=== PATIENT | male | born 1975 | race Caucasian/White ===

== ENCOUNTER 2024-08-14 00:30 | Emergency (ER) | payer MEDICAID ==
[~2024-08-14] VITALS: Ht 165.1 cm; Wt 91.0 kg
[2024-08-14 00:43] VITALS: O2SAT 100
[2024-08-14] MEDS ORDERED: DOXY100T28 MT (01:39)
[2024-08-14] MEDS ORDERED: NAPR-681 PO (01:39)
[2024-08-14] MEDS ORDERED: FAMO20TA8 MT (01:39)
[2024-08-14 01:50] VITALS: BP 155/89; PULSE 75; RESP 20; TEMP 36.89184; O2SAT 100
== END 2024-08-14 01:50 | disposition home or self-care (01) ==
LOC: ER 00:41
DX: S00.06XA Insect bite (nonvenomous) of scalp, initial encounter (principal); L03.811 Cellulitis of head [any part, except face]; I10 Essential (primary) hypertension; W57.XXXA Bitten or stung by nonvenomous insect and other nonvenomous arthropods, initial encounter; Y93.89 Activity, other specified; Y92.89 Other specified places as the place of occurrence of the external cause; Y99.8 Other external cause status
CPT/HCPCS: 99283

== ENCOUNTER 2024-09-06 06:13 | Emergency (ER) | payer OTHER ==
[~2024-09-06] VITALS: Ht 167.6 cm; Wt 86.0 kg
[~2024-09-06 06:13] MED LIST: DOXY100T28 MT; FAMO20TA8 MT; NAPR-681 PO
[2024-09-06 06:18] VITALS: O2SAT 98
[2024-09-06] MEDS: CYCLOBENZAPRINE 10MG TABLET PO ONE (07:00)
[2024-09-06] MEDS: KETOROLAC 15MG/ML VIAL IM ONE (07:00)
[2024-09-06] MEDS: LIDOCAINE 5% PATCH TOP SCH (09:22)
[2024-09-06] MEDS ORDERED: LIDO700A15 TP (10:30)
[2024-09-06] MEDS ORDERED: NAPR-681 MT (10:30)
[2024-09-06 10:59] VITALS: BP 180/99; PULSE 96; RESP 18; TEMP 36.50292; O2SAT 9
== END 2024-09-06 11:00 | disposition home or self-care (01) ==
LOC: ER 06:38
DX: M79.604 Pain in right leg (principal)
CPT/HCPCS: 96372; 99283; J1885; Z7610